=== PATIENT | male | born 1995 | race Caucasian/White ===

== ENCOUNTER 2017-05-16 12:38 | Emergency (ER) | payer OTHER ==
[2017-05-16 12:43] VITALS: BP 140/79; PULSE 64; RESP 18; TEMP 98.6; O2SAT 97
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
[2017-05-16] MEDS ORDERED: IBUPROFEN 800 MG TAB PO ONE (13:15)
[2017-05-16] MEDS ORDERED: IBUPROFEN 200 MG TAB PO ONE (13:24)
== END 2017-05-16 13:35 | disposition home or self-care (01) ==
DX: S00.33XA Contusion of nose, initial encounter (principal); W51.XXXA Accidental striking against or bumped into by another person, initial encounter

== ENCOUNTER 2018-08-18 17:08 | Emergency (ER) | payer OTHER ==
[2018-08-18 17:14] VITALS: BP 142/91
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
== END 2018-08-18 18:08 | disposition home or self-care (01) ==
DX: S60.221A Contusion of right hand, initial encounter (principal); S90.31XA Contusion of right foot, initial encounter; R45.6 Violent behavior; W22.8XXA Striking against or struck by other objects, initial encounter

== ENCOUNTER 2018-09-02 11:17 | Emergency (ER) | payer OTHER ==
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
[2018-09-02 13:21] VITALS: BP 138/88
== END 2018-09-02 13:19 | disposition home or self-care (01) ==
DX: S21.91XA Laceration without foreign body of unspecified part of thorax, initial encounter (principal); X78.1XXA Intentional self-harm by knife, initial encounter